=== PATIENT | female | born 1970 | race Caucasian/White ===

== ENCOUNTER 2017-10-23 04:12 | Outpatient (CLI) | payer MEDICAID | END 2017-10-23 23:59 | disposition home or self-care (01) | LOC: DIABETIC 04:12 | PROVIDERS: ATTEND Surgery | DX: E66.01 Morbid (severe) obesity due to excess calories (principal); K21.9 Gastro-esophageal reflux disease without esophagitis; I10 Essential (primary) hypertension | CPT/HCPCS: 97802 ==

== ENCOUNTER 2017-11-14 01:43 | Outpatient (CLI) | payer MEDICAID | END 2017-11-14 23:59 | disposition home or self-care (01) | LOC: DIABETIC 01:43 | PROVIDERS: ATTEND Surgery | DX: E66.01 Morbid (severe) obesity due to excess calories (principal); I10 Essential (primary) hypertension; K21.9 Gastro-esophageal reflux disease without esophagitis | CPT/HCPCS: 97802 ==